=== PATIENT | male | born 1990 | race Caucasian/White ===

== ENCOUNTER 2023-04-21 08:00 | Outpatient (CLI) | payer OTHER ==
[2023-04-21 16:38] LABS: CHLAMYDIA TRACHOMATIS DNA NEGATIVE (NEGATIVE); NEISSERIA GONORRHOEAE DNA NEGATIVE (NEGATIVE)
[2023-04-21 16:42] LABS: TRICHOMONAS VAGINALIS DNA NEGATIVE (NEGATIVE)
== END 2023-04-21 23:59 | disposition home or self-care (01) ==
LOC: LAB.S 08:00
PROVIDERS: ATTEND Emergency Medicine
DX: A63.0 Anogenital (venereal) warts (principal)
CPT/HCPCS: 87491; 87591; 87661

== ENCOUNTER 2023-04-21 10:42 | Outpatient (CLI) | payer OTHER ==
[2023-04-22 04:09] LABS: HBsAG SCREEN Negative (Negative); HEPATITIS B SURFACE AB QUANT 125.4 mIU/mL (Immunity>9.9); RPR Non Reactive (Non Reactive)
[2023-04-22 07:10] LABS: HCV AB Non Reactive (Non Reactive); HIV SCREEN 4TH GENERATION Non Reactive (Non Reactive); HSV 2 IGG TYPE SPEC <0.91 index (0.00-0.90)
== END 2023-04-21 10:43 | disposition home or self-care (01) ==
LOC: LAB.S 10:42
PROVIDERS: ATTEND Emergency Medicine
DX: A63.0 Anogenital (venereal) warts (principal)
CPT/HCPCS: 36415; 86317; 86592; 86695; 86696; 86803; 87340; 87389; 87491; 87591; 87661